=== PATIENT | female | born 1990 | race Caucasian/White ===

== ENCOUNTER 2021-04-01 13:03 | Emergency (ER) | payer SELFPAY ==
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
--- NOTE | 2021-04-01 16:09 | CT ---
Head CT Technique: Multiple axial sections through the brain were obtained. Intravenous contrast was not utilized. Reconstructed coronal and sagittal images were obtained. Comparison: No prior intracranial imaging is available. Findings: Ventricles along with basal cisterns and sulci over the convexities are within normal limits for the patient's age. No abnormal parenchymal densities are seen. No evidence of intracranial hemorrhage is seen. No midline shift or mass-effect is seen. Small calcification is seen to the midline within the parietal region measuring 3.5 mm which likely relates to the interhemispheric falx and is incidental. Bone window settings were reviewed. No acute calvarial abnormality is appreciated. Visualized mastoid sinuses and paranasal sinuses show nothing acute. Impression: 1. Calcification felt to be incidental. 2. Nothing acute is seen on noncontrast head CT study. Diagnostic code #1
== END 2021-04-01 16:30 | disposition home or self-care (01) ==
LOC: JD.ED 13:03
DX: S00.03XA Contusion of scalp, initial encounter (principal); Z72.0 Tobacco use; Y04.2XXA Assault by strike against or bumped into by another person, initial encounter
CPT/HCPCS: 70450; 70450-26; 99283; 99283-25

== ENCOUNTER 2024-04-28 12:01 | Observation (INO) | payer MEDICAID ==
[2024-04-28] MEDS ORDERED: Lidocaine 1% 50 ML MDV INJECT PRN (12:24)
[2024-04-28] MEDS ORDERED: Sodium Chloride 0.9% 10 ML Syringe FLUSH PRN (12:24)
[2024-04-28] MEDS ORDERED: Lactated Ringers 1,000 ML IV SCH (12:30)
[2024-04-28 12:38] VITALS: BP 144/96; PULSE 95
[2024-04-28 12:44] LABS: BASOPHILS PERCENT AUTO 0.3 % (0.0-1.0); EOSINOPHILS ABSOLUTE AUTO 0.1 K/mm3 (0.0-0.4); EOSINOPHILS PERCENT AUTO 0.8 % (0.0-6.0); HEMATOCRIT 33.1 % (37.0-47.0); HEMOGLOBIN 11.1 gm/dl (12.0-16.0); IMMATURE GRAN ABSOLUTE AUTO 0.04 K/mm3 (0.00-0.05); IMMATURE GRAN PERCENT AUTO 0.5 % (0.0-0.4); LYMPHOCYTES ABSOLUTE AUTO 1.3 K/mm3 (1.0-4.8); LYMPHOCYTES PERCENT AUTO 17.7 % (24.0-44.0); MEAN CORPUSCULAR HEMOGLOBIN 29.1 pg (28.0-32.0); MEAN CORPUSCULAR HGB CONC 33.5 g/dl (32.0-36.0); MEAN CORPUSCULAR VOLUME 86.9 fl (83.0-99.0); MEAN PLATELET VOLUME 9.3 fl (9.4-12.3); MONOCYTES ABSOLUTE AUTO 0.6 K/mm3 (0.0-0.8); MONOCYTES PERCENT AUTO 8.5 % (0.0-8.0); NEUTROPHILS ABSOLUTE AUTO 5.5 K/mm3 (1.8-7.7); NEUTROPHILS PERCENT AUTO 72.2 % (41.0-71.0); PLATELET COUNT,PLT 241 K/mm3 (150-400); RED BLOOD CELL COUNT 3.81 M/mm3 (4.10-5.30); WHITE BLOOD CELL COUNT,WBC 7.57 K/mm3 (3.9-11.3)
[2024-04-28 13:09] LABS: A/G RATIO 0.6 (1-2); ALBUMIN 2.3 g/dl (3.4-5.0); ANION GAP 11.6 (5-15); BILIRUBIN TOTAL 0.2 mg/dL (0.2-1.0); BUN/CREATININE RATIO 17.5 (14-18); CALCIUM 8.7 mg/dL (8.5-10.1); CREATININE 0.8 mg/dL (0.55-1.02); EST CRCL DRUG DOSING (CG) 73.19 mL/min; POTASSIUM,K 3.6 mEq/L (3.5-5.1); PROTEIN TOTAL,TP 5.9 g/dl (6.4-8.2)
[2024-04-28 13:35] LABS: BARBITURATE SCREEN,URINE NEGATIVE (CUTOFF=200); BENZODIAZEPINES SCREEN,URINE NEGATIVE (CUTOFF=150); BUPRENORPHINE SCREEN,URINE NEGATIVE (CUTOFF=10); METHADONE SCREEN, URINE NEGATIVE (CUTOFF=200); METHAMPHETAMINES SCREEN, URINE NEGATIVE (CUTOFF=500); OXYCODONE SCREEN,URINE NEGATIVE (CUT0FF=100); THC SCREEN,URINE 20 NG/ML NEGATIVE (CUTOFF=50)
[2024-04-28 13:36] LABS: AMPHETAMINES SCREEN, URINE PRESUMPTIVE POSITIVE (CUTOFF=500)
[2024-04-28 13:58] LABS: CREATININE,URINE RAND 25.6 mg/dL (30.0-125.0)
[2024-04-28 14:01] LABS: PROTEIN,URINE RANDOM < 6.0 mg/dL (0.0-11.8)
[2024-04-28] MEDS: Misoprostol 25 MCG (1/4 of 100 MCG) Tab VAG SCH (14:40)
[2024-04-28] MEDS ORDERED: Sodium Chloride 0.9% 10 ML Syringe FLUSH SCH (21:00)
== END 2024-04-28 14:22 | disposition home or self-care (01) ==
LOC: JD.OB 12:01
PROVIDERS: ADMIT Obstetrics & Gynecology; ATTEND Obstetrics & Gynecology
DX: O13.3 Gestational [pregnancy-induced] hypertension without significant proteinuria, third trimester (principal); Z3A.37 37 weeks gestation of pregnancy
CPT/HCPCS: 36415; 59025; 80053; 80306; 82570; 84156; 85025; 86592; G0378

== ENCOUNTER 2024-05-02 16:24 | Inpatient (IN) | payer MEDICAID ==
[2024-05-02] MEDS ORDERED: Sodium Chloride 0.9% 10 ML Syringe FLUSH PRN (20:33)
[2024-05-02] MEDS ORDERED: Ondansetron 4 MG/2 ML SDV IVPUSH PRN (20:33)
[2024-05-02] MEDS ORDERED: Lidocaine 1% 50 ML MDV INJECT PRN (20:33)
[2024-05-02] MEDS ORDERED: Oxytocin/0.9 % Sodium Chloride 30 UNIT/500 ML BAG IV SCH (20:45)
[2024-05-02 21:22] LABS: BASOPHILS PERCENT AUTO 0.3 % (0.0-1.0); EOSINOPHILS PERCENT AUTO 0.3 % (0.0-6.0); HEMATOCRIT 34.5 % (37.0-47.0); HEMOGLOBIN 11.4 gm/dl (12.0-16.0); IMMATURE GRAN ABSOLUTE AUTO 0.02 K/mm3 (0.00-0.05); IMMATURE GRAN PERCENT AUTO 0.2 % (0.0-0.4); LYMPHOCYTES ABSOLUTE AUTO 1.7 K/mm3 (1.0-4.8); LYMPHOCYTES PERCENT AUTO 18.3 % (24.0-44.0); MEAN CORPUSCULAR HEMOGLOBIN 28.6 pg (28.0-32.0); MEAN CORPUSCULAR VOLUME 86.7 fl (83.0-99.0); MEAN PLATELET VOLUME 9.5 fl (9.4-12.3); MONOCYTES ABSOLUTE AUTO 0.6 K/mm3 (0.0-0.8); NEUTROPHILS ABSOLUTE AUTO 6.8 K/mm3 (1.8-7.7); NEUTROPHILS PERCENT AUTO 74.9 % (41.0-71.0); PLATELET COUNT,PLT 272 K/mm3 (150-400); RED BLOOD CELL COUNT 3.98 M/mm3 (4.10-5.30); WHITE BLOOD CELL COUNT,WBC 9.12 K/mm3 (3.9-11.3)
[2024-05-02 21:47] LABS: A/G RATIO 0.6 (1-2); ALANINE AMINOTRANSFERASE,ALT 34 U/L (14-59); ALBUMIN 2.4 g/dl (3.4-5.0); ALKALINE PHOSPHATASE 88 U/L (46-116); ANION GAP 14.8 (5-15); ASPARTATE AMNIOTRANSFERASE,AST 26 U/L (15-37); BILIRUBIN TOTAL 0.2 mg/dL (0.2-1.0); BLOOD UREA NITROGEN,BUN 15 mg/dL (7-18); CALCIUM 8.8 mg/dL (8.5-10.1); CARBON DIOXIDE,CO2 22 mEq/L (21-32); CHLORIDE,CL 104 mEq/L (98-107); ESTIMATED GFR 77 mL/min (>60); GLUCOSE RANDOM 127 mg/dL (70-99); POTASSIUM,K 3.8 mEq/L (3.5-5.1); PROTEIN TOTAL,TP 6.3 g/dl (6.4-8.2); SODIUM,NA 137 mEq/L (136-145)
[2024-05-02] MEDS: Misoprostol 25 MCG (1/4 of 100 MCG) Tab VAG SCH (21:51)
[2024-05-02 22:43] LABS: CREATININE,URINE RAND 113.8 mg/dL (30.0-125.0); PROTEIN CREATININE RATIO,URINE 166.1 mg/g (0-149); PROTEIN,URINE RANDOM 18.9 mg/dL (0.0-11.8)
[2024-05-03] MEDS: Misoprostol 25 MCG (1/4 of 100 MCG) Tab VAG SCH (02:01)
[2024-05-03] MEDS ORDERED: hydrOXYzine HCl 25 MG Tab PO PRN (06:49)
[2024-05-03] MEDS: Sodium Chloride 0.9% 10 ML Syringe FLUSH SCH (08:32)
[2024-05-03] MEDS: Oxytocin/0.9 % Sodium Chloride 30 UNIT/500 ML BAG IV SCH (13:23)
[2024-05-03] MEDS: Lactated Ringers 1,000 ML IV SCH (13:23)
[2024-05-03] MEDS ORDERED: diphenhydrAMINE 50 MG/ML SDV IVPUSH PRN (20:22)
[2024-05-03] MEDS ORDERED: ePHEDrine 50 MG/ML SDV IVPUSH PRN (20:22)
[2024-05-03] MEDS: Bupivacaine/fentaNYL/NS 100 ML Bag EPIDUR PRN (20:29)
[2024-05-03] MEDS: Sertraline 25 MG Tab PO SCH (22:23)
[2024-05-04] MEDS: Acetaminophen 325 MG Tab PO PRN (06:46)
[2024-05-04] MEDS: Ampicillin 2 GM in Sodium Chloride 0.9% 100 ML IV SCH (07:08)
[2024-05-04 07:16] LABS: BASOPHILS PERCENT AUTO 0.2 % (0.0-1.0); EOSINOPHILS PERCENT AUTO 0.1 % (0.0-6.0); HEMATOCRIT 36.2 % (37.0-47.0); IMMATURE GRAN ABSOLUTE AUTO 0.08 K/mm3 (0.00-0.05); IMMATURE GRAN PERCENT AUTO 0.6 % (0.0-0.4); LYMPHOCYTES ABSOLUTE AUTO 1.1 K/mm3 (1.0-4.8); LYMPHOCYTES PERCENT AUTO 8.1 % (24.0-44.0); MEAN CORPUSCULAR HEMOGLOBIN 28.6 pg (28.0-32.0); MEAN CORPUSCULAR HGB CONC 33.1 g/dl (32.0-36.0); MEAN CORPUSCULAR VOLUME 86.2 fl (83.0-99.0); MEAN PLATELET VOLUME 10.1 fl (9.4-12.3); MONOCYTES ABSOLUTE AUTO 0.8 K/mm3 (0.0-0.8); NEUTROPHILS ABSOLUTE AUTO 11.7 K/mm3 (1.8-7.7); PLATELET COUNT,PLT 208 K/mm3 (150-400); WHITE BLOOD CELL COUNT,WBC 13.79 K/mm3 (3.9-11.3)
[2024-05-04 08:06] LABS: A/G RATIO 0.6 (1-2); ALBUMIN 2.2 g/dl (3.4-5.0); ANION GAP 17.1 (5-15); BILIRUBIN TOTAL 0.3 mg/dL (0.2-1.0); BUN/CREATININE RATIO 13.8 (14-18); CALCIUM 8.6 mg/dL (8.5-10.1); CREATININE 0.8 mg/dL (0.55-1.02); EST CRCL DRUG DOSING (CG) 73.19 mL/min; POTASSIUM,K 4.1 mEq/L (3.5-5.1); PROTEIN TOTAL,TP 6.1 g/dl (6.4-8.2)
[2024-05-04] MEDS ORDERED: ceFAZolin 2 GM Vial ONE (15:31)
[2024-05-04] MEDS ORDERED: Sodium Chloride 0.9% 10 ML Syringe FLUSH PRN (15:31)
[2024-05-04] MEDS ORDERED: Morphine PF 10 MG/10 ML SDV ONE (15:33)
[2024-05-04] MEDS ORDERED: ePHEDrine 50 MG/ML SDV ONE (15:35)
[2024-05-04] MEDS ORDERED: Ketorolac 30 MG/ML SDV ONE (15:35)
[2024-05-04] MEDS ORDERED: Lactated Ringers 1,000 ML IV SCH (15:45)
[2024-05-04] MEDS: Metoclopramide 10 MG/2 ML SDV IVPUSH ONE (15:52)
[2024-05-04] MEDS: Citric Acid/Sodium Citrate Solution 30 ML Cup PO ONE (15:52)
[2024-05-04] MEDS: Clindamycin Phosphate in D5W 900 MG in Premix Bag 1 BAG IV ONE (15:54)
[2024-05-04] MEDS ORDERED: Azithromycin 500 MG Vial ONE (16:20)
[2024-05-04] MEDS ORDERED: Sodium Chloride 0.9% 250 ML IV ONE (16:20)
[2024-05-04] MEDS ORDERED: Oxytocin/0.9 % Sodium Chloride 30 UNIT/500 ML BAG IV ONE (16:30)
[2024-05-04] MEDS ORDERED: Phenylephrine 1% 10 MG/ML SDV ONE (16:37)
[2024-05-04] MEDS ORDERED: diphenhydrAMINE 50 MG/ML SDV IVPUSH PRN ×2 (17:13→17:23)
[2024-05-04] MEDS ORDERED: Ondansetron 4 MG/2 ML SDV IVPUSH PRN (17:13)
[2024-05-04] MEDS ORDERED: fentaNYL 100 MCG/2 ML SDV IVPUSH PRN (17:13)
[2024-05-04] MEDS ORDERED: Magnesium Hydroxide 400 MG/5 ML Susp 30 ML Cup PO PRN (17:23)
[2024-05-04] MEDS ORDERED: Docusate Sodium 100 MG Cap PO PRN (17:23)
[2024-05-04] MEDS ORDERED: Naloxone 0.4 MG/ML SDV IVPUSH PRN (17:23)
[2024-05-04] MEDS ORDERED: ePHEDrine 50 MG/ML SDV IVPUSH PRN (17:23)
[2024-05-04] MEDS: Acetaminophen 325 MG Tab PO SCH (21:03)
[2024-05-04] MEDS: Sennosides 8.6 MG Tab PO SCH (21:05)
[2024-05-04] MEDS: Dextrose 5%-Lactated Ringers 1,000 ML IV SCH (21:25)
[2024-05-04] MEDS ORDERED: Ibuprofen 600 MG Tab PO SCH (21:30)
[2024-05-04] MEDS: Sodium Chloride 0.9% 10 ML Syringe FLUSH SCH (23:46)
[2024-05-04] MEDS: Ibuprofen 600 MG Tab PO SCH (23:58)
[2024-05-04] MEDS: Sertraline 25 MG Tab PO SCH (23:59)
[2024-05-05 08:09] LABS: HEMATOCRIT 20.3 % (37.0-47.0); MEAN CORPUSCULAR HEMOGLOBIN 28.8 pg (28.0-32.0); MEAN CORPUSCULAR VOLUME 87.1 fl (83.0-99.0); MEAN PLATELET VOLUME 9.2 fl (9.4-12.3); PLATELET COUNT,PLT 164 K/mm3 (150-400); RED BLOOD CELL COUNT 2.33 M/mm3 (4.10-5.30); WHITE BLOOD CELL COUNT,WBC 13.17 K/mm3 (3.9-11.3)
[2024-05-05 08:10] LABS: HEMOGLOBIN 6.7 gm/dl (12.0-16.0)
[2024-05-05 11:46] LABS: BASOPHILS PERCENT AUTO 0.2 % (0.0-1.0); EOSINOPHILS ABSOLUTE AUTO 0.1 K/mm3 (0.0-0.4); EOSINOPHILS PERCENT AUTO 0.7 % (0.0-6.0); HEMATOCRIT 20.3 % (37.0-47.0); IMMATURE GRAN ABSOLUTE AUTO 0.06 K/mm3 (0.00-0.05); IMMATURE GRAN PERCENT AUTO 0.5 % (0.0-0.4); LYMPHOCYTES ABSOLUTE AUTO 1.3 K/mm3 (1.0-4.8); LYMPHOCYTES PERCENT AUTO 10.1 % (24.0-44.0); MEAN CORPUSCULAR HEMOGLOBIN 29.3 pg (28.0-32.0); MEAN CORPUSCULAR HGB CONC 33.5 g/dl (32.0-36.0); MEAN CORPUSCULAR VOLUME 87.5 fl (83.0-99.0); MEAN PLATELET VOLUME 9.4 fl (9.4-12.3); MONOCYTES ABSOLUTE AUTO 0.8 K/mm3 (0.0-0.8); MONOCYTES PERCENT AUTO 5.8 % (0.0-8.0); NEUTROPHILS ABSOLUTE AUTO 10.7 K/mm3 (1.8-7.7); NEUTROPHILS PERCENT AUTO 82.7 % (41.0-71.0); PLATELET COUNT,PLT 171 K/mm3 (150-400); RED BLOOD CELL COUNT 2.32 M/mm3 (4.10-5.30); WHITE BLOOD CELL COUNT,WBC 12.93 K/mm3 (3.9-11.3)
[2024-05-05 11:53] LABS: HEMOGLOBIN 6.8 gm/dl (12.0-16.0)
[2024-05-05] MEDS ORDERED: Sodium Chloride 0.9% 500 ML IV SCH (12:45)
[2024-05-06] MEDS: oxyCODONE 5 MG Tab PO PRN (05:15)
[2024-05-06 06:31] LABS: HEMATOCRIT 21.9 % (37.0-47.0); MEAN CORPUSCULAR HGB CONC 33.3 g/dl (32.0-36.0); MEAN CORPUSCULAR VOLUME 86.9 fl (83.0-99.0); MEAN PLATELET VOLUME 9.5 fl (9.4-12.3); PLATELET COUNT,PLT 197 K/mm3 (150-400); RED BLOOD CELL COUNT 2.52 M/mm3 (4.10-5.30); WHITE BLOOD CELL COUNT,WBC 10.78 K/mm3 (3.9-11.3)
[2024-05-06 06:49] LABS: HEMOGLOBIN 7.3 gm/dl (12.0-16.0)
[2024-05-07] MEDS: Measles, Mumps & Rubella Vaccine 0.5 ML SDV SUBCUT ONE (09:01)
== END 2024-05-07 11:45 | disposition home or self-care (01) | DRG 786 ==
LOC: JD.OB 16:24 → OBSVTOIN 05-04 16:24 → JD.OB 05-04 16:25
PROVIDERS: ADMIT Obstetrics & Gynecology; ATTEND Obstetrics & Gynecology
PROC: 3E0P7VZ Introduction of Hormone into Female Reproductive, Via Natural or Artificial Opening (ICD-10-PCS; 2024-05-04)
PROC: 10H07YZ Insertion of Other Device into Products of Conception, Via Natural or Artificial Opening (ICD-10-PCS; 2024-05-04)
PROC: 3E033VJ Introduction of Other Hormone into Peripheral Vein, Percutaneous Approach (ICD-10-PCS; 2024-05-04)
PROC: 3E0R3BZ Introduction of Anesthetic Agent into Spinal Canal, Percutaneous Approach (ICD-10-PCS; 2024-05-04)
PROC: 00HU33Z Insertion of Infusion Device into Spinal Canal, Percutaneous Approach (ICD-10-PCS; 2024-05-04)
PROC: 30233N1 Transfusion of Nonautologous Red Blood Cells into Peripheral Vein, Percutaneous Approach (ICD-10-PCS; 2024-05-04)
PROC: 10D00Z1 Extraction of Products of Conception, Low, Open Approach (ICD-10-PCS; principal; 2024-05-04 16:00)
DX: O13.4 Gestational [pregnancy-induced] hypertension without significant proteinuria, complicating childbirth (principal); O41.1230 Chorioamnionitis, third trimester, not applicable or unspecified; D62 Acute posthemorrhagic anemia; O99.214 Obesity complicating childbirth; O34.13 Maternal care for benign tumor of corpus uteri, third trimester; D25.9 Leiomyoma of uterus, unspecified; O99.344 Other mental disorders complicating childbirth; F90.2 Attention-deficit hyperactivity disorder, combined type; F41.8 Other specified anxiety disorders; O62.1 Secondary uterine inertia; O76 Abnormality in fetal heart rate and rhythm complicating labor and delivery; O90.81 Anemia of the puerperium; Z37.0 Single live birth; Z3A.37 37 weeks gestation of pregnancy
CPT/HCPCS: 01967; 01968; 36415; 36430; 51702; 59025; 80053; 82570; 83605; 84156; 85025; 85027; 86592; 86850; 86900; 86901; 86922; 90471; 90707; A9270-GY; J0290; J0456; J0690; J0736; J1580; J1885; J2274; J2371; J2765; J3490; J7050; J7120; J7121; J7999; P9016

== ENCOUNTER 2025-05-22 07:30 | Inpatient (IN) | payer MEDICAID ==
[2025-05-26] MEDS ORDERED: Sodium Chloride 0.9% 10 ML Syringe FLUSH PRN (00:01)
[2025-05-26] MEDS ORDERED: Oxytocin/0.9 % Sodium Chloride 30 UNIT/500 ML BAG IV SCH (08:45)
[2025-05-26] MEDS: Lactated Ringers 1,000 ML IV SCH (08:46)
[2025-05-26 09:03] LABS: BASOPHILS ABSOLUTE AUTO 0.0 K/mm3 (0.0-0.2); BASOPHILS PERCENT AUTO 0.5 % (0.0-1.0); EOSINOPHILS ABSOLUTE AUTO 0.1 K/mm3 (0.0-0.4); EOSINOPHILS PERCENT AUTO 0.9 % (0.0-6.0); IMMATURE GRAN ABSOLUTE AUTO 0.04 K/mm3 (0.00-0.05); IMMATURE GRAN PERCENT AUTO 0.5 % (0.0-0.4); LYMPHOCYTES ABSOLUTE AUTO 1.8 K/mm3 (1.0-4.8); LYMPHOCYTES PERCENT AUTO 23.8 % (24.0-44.0); MEAN PLATELET VOLUME 8.9 fl (9.4-12.3); MONOCYTES ABSOLUTE AUTO 0.7 K/mm3 (0.0-0.8); MONOCYTES PERCENT AUTO 9.0 % (0.0-8.0); NEUTROPHILS ABSOLUTE AUTO 5.0 K/mm3 (1.8-7.7); NEUTROPHILS PERCENT AUTO 65.3 % (41.0-71.0); NRBC ABSOLUTE 0.00 (0.00-0.02); NRBC PERCENT 0.0 % (0.0-0.2); PLATELET COUNT,PLT 279 K/mm3 (150-400); RED BLOOD CELL COUNT 4.12 M/mm3 (4.10-5.30); WHITE BLOOD CELL COUNT,WBC 7.69 K/mm3 (3.9-11.3)
[2025-05-26] MEDS ORDERED: Phenylephrine 1% 10 MG/ML SDV ONE (09:12)
[2025-05-26] MEDS ORDERED: Ondansetron 4 MG/2 ML SDV ONE (09:18)
[2025-05-26] MEDS: Sodium Chloride 0.9% 10 ML Syringe FLUSH SCH (10:16)
[2025-05-26] MEDS: Citric Acid/Sodium Citrate Solution 30 ML Cup PO ONE (10:31)
[2025-05-26] MEDS ORDERED: Ketorolac 30 MG/ML SDV ONE (10:59)
[2025-05-26] MEDS ORDERED: fentaNYL 100 MCG/2 ML SDV IVPUSH PRN (11:14)
[2025-05-26] MEDS ORDERED: diphenhydrAMINE 50 MG/ML SDV IVPUSH PRN ×3 (11:14→14:05)
[2025-05-26] MEDS ORDERED: Ondansetron 4 MG/2 ML SDV IVPUSH PRN (11:14)
[2025-05-26] MEDS ORDERED: Oxytocin/0.9 % Sodium Chloride 30 UNIT/500 ML BAG IV ONE (11:15)
[2025-05-26] MEDS ORDERED: Naloxone 0.4 MG/ML SDV IVPUSH PRN ×2 (14:05)
[2025-05-26] MEDS ORDERED: ePHEDrine 50 MG/ML SDV IVPUSH PRN ×2 (14:05)
[2025-05-26] MEDS: Ketorolac 30 MG/ML SDV IVPUSH SCH (17:15)
[2025-05-26] MEDS ORDERED: Lactated Ringers 1,000 ML IV SCH (20:15)
[2025-05-27 07:21] LABS: BASOPHILS ABSOLUTE AUTO 0.0 K/mm3 (0.0-0.2); BASOPHILS PERCENT AUTO 0.2 % (0.0-1.0); EOSINOPHILS ABSOLUTE AUTO 0.1 K/mm3 (0.0-0.4); EOSINOPHILS PERCENT AUTO 1.4 % (0.0-6.0); IMMATURE GRAN ABSOLUTE AUTO 0.03 K/mm3 (0.00-0.05); IMMATURE GRAN PERCENT AUTO 0.4 % (0.0-0.4); LYMPHOCYTES ABSOLUTE AUTO 1.6 K/mm3 (1.0-4.8); LYMPHOCYTES PERCENT AUTO 18.4 % (24.0-44.0); MEAN PLATELET VOLUME 8.7 fl (9.4-12.3); MONOCYTES ABSOLUTE AUTO 0.7 K/mm3 (0.0-0.8); MONOCYTES PERCENT AUTO 8.1 % (0.0-8.0); NEUTROPHILS ABSOLUTE AUTO 6.1 K/mm3 (1.8-7.7); NEUTROPHILS PERCENT AUTO 71.5 % (41.0-71.0); NRBC ABSOLUTE 0.00 (0.00-0.02); NRBC PERCENT 0.0 % (0.0-0.2); PLATELET COUNT,PLT 249 K/mm3 (150-400); RED BLOOD CELL COUNT 3.52 M/mm3 (4.10-5.30); WHITE BLOOD CELL COUNT,WBC 8.48 K/mm3 (3.9-11.3)
[2025-05-27] MEDS: Acetaminophen/oxyCODONE 325-5 MG Tab PO PRN ×2 (15:17→20:28)
== END 2025-05-29 13:10 | disposition home or self-care (01) | DRG 788 ==
LOC: JD.OB 05-26 08:14
PROVIDERS: ADMIT Obstetrics & Gynecology; ATTEND Obstetrics & Gynecology
PROC: 10D00Z1 Extraction of Products of Conception, Low, Open Approach (ICD-10-PCS; principal; 2025-05-26 12:00)
DX: O34.211 Maternal care for low transverse scar from previous cesarean delivery (principal); O24.424 Gestational diabetes mellitus in childbirth, insulin controlled; O14.94 Unspecified pre-eclampsia, complicating childbirth; O13.4 Gestational [pregnancy-induced] hypertension without significant proteinuria, complicating childbirth; O99.214 Obesity complicating childbirth; Z79.899 Other long term (current) drug therapy; Z79.82 Long term (current) use of aspirin; Z37.0 Single live birth; Z3A.37 37 weeks gestation of pregnancy; Z79.4 Long term (current) use of insulin
CPT/HCPCS: 01961; 36415; 59025; 85025; 86592; 86850; 86870; 86900; 86901; 86905; A9270-GY; J0690; J1171; J1885; J2371; J2405; J2765; J7120; J7121; J7999